=== PATIENT | male | born 1970 | race Caucasian/White ===

== ENCOUNTER → 2019-08-03 | Outpatient (CLI) | payer BC, OTHER ==
[2014-03-08 22:21] VITALS: BP 165/102
[~2019-08-03] MED LIST: BUPR150T15 PO
--- NOTE | 2019-08-03 18:58 | RAD ---
EXAM: ULTRASOUND-GUIDED THYROID FINE-NEEDLE ASPIRATION. HISTORY: Thyroid nodule. Ultrasound-guided biopsy is requested. FINDINGS: The procedure along with its risks and benefits were explained to the patient. They agreed to proceed. A timeout procedure was performed. Sonographic images of the thyroid gland were obtained. The solid target nodule in the inferior right thyroid lobe was adequately visualized for biopsy. It was approached in a transverse orientation. The overlying skin was sterilely prepped and infiltrated with 1% lidocaine for local anesthesia. Under ultrasound guidance, 4 aspirates were obtained using 25-gauge needles. These were hand delivered to pathology who determined them adequate for diagnosis. A sterile dressing was placed. There were no immediate complications. IMPRESSION: 1. Successful ultrasound-guided fine-needle aspiration of the right thyroid nodule. Electronically signed by: Clarice Diggs MD (08/03/2019 6:55 PM) [id number]
--- NOTE | 2019-08-06 13:07 | PATHOLOGY ---
Note [facility] Accession Number: [id number] TESTS RESULT FLAG UNITS REF RANGE LAB Clinician Provided Cytology Information No. of containers..01 Other (Miscellaneous) Source: RIGHT THYROID NODULE DIAGNOSIS: RIGHT THYROID NODULE INADEQUATE, INSUFFICIENT CELLS FOR STUDY. Signed out by: David Malcolm MD, Pathologist NPI- [id number] Performed by: Georges Moeller, Tailor Fitter ([facility]) Gross description: 30ML, CLEAR COLORLESS, 2FX 2AD /LCS 08/03/2019 1625 Local FLAG LEGEND: L-Low Normal,H-High Normal,LL-Alert Low,HH-Alert High <-Panic Low,>-Panic High,A-Abnormal,AA-Critical Abnormal Performed at: [facility] [address] [place] [address] Manjeet Rios MD, [address] [facility] [address] [place] [address] David Malcolm MD, Specimen Comment: A courtesy copy of this report has been sent to [phone], [phone] Specimen Comment: [id number], Specimen Comment: Report sent to ,DR NAVA / DR CANAS Specimen Comment: A duplicate report has been generated due to demographic updates. Performed at: 01 [facility] [address], [place], [place] [id number] MD Manjeet Rios MD Phone: [phone]
== END | disposition home or self-care (01) ==
LOC: US 15:48
PROVIDERS: ATTEND Surgery
DX: E04.1 Nontoxic single thyroid nodule (principal)
CPT/HCPCS: 10005; 60300; 76942; 88173

== ENCOUNTER → 2021-07-31 | Outpatient (CLI) | payer BC ==
[2014-03-08 22:21] VITALS: BP 165/102
--- NOTE | 2021-07-31 20:54 | RAD ---
EXAM: ULTRASOUND SOFT TISSUE NECK CLINICAL HISTORY: Follow-up right thyroid nodule. Status post biopsy 08/03/2019 COMPARISON: 06/14/2019 and 08/03/2019 TECHNIQUE: Ultrasound examination of the thyroid gland was performed FINDINGS: Sonographic evaluation of the thyroid gland was performed and evaluated using ACR TI-RADS criteria. The right thyroid lobe measures 6.4 x 2.5 x 2.2 cm and the left thyroid lobe 6 x 1.6 x 1.8 cm. The is thmus measures 0.4 cm in thickness. Diffusely heterogeneous thyroid parenchyma. Redemonstration of a right thyroid lobe solid hypoechoic nodule currently measured at 1.1 x 1 x 1.3 cm with the largest dimension longitudinal. On the 06/14/19 20 this nodule is measured at 1.6 x 1.5 x 2.1 cm. TI-RADS 5. No newly developed nodule. IMPRESSION: Previously biopsied TI-RADS 5 right thyroid lobe nodule measures smaller in size at 1.1 x 1 x 1.3 cm compared to 1.6 x 1.5 x 2.1 cm. No newly developed nodule. Similar overall size of the thyroid gland. As before, thyroid parenchymal echotexture is diffusely heterogeneous. Given decrease in size and pr evious biopsy, surveillance is appropriate per guidelines outlined below. ACR TI-RADS risk category: TR5 (7 points): FNA if 1 cm, follow-up if 0.5-0.9 cm every year for 5 year s. Electronically signed by: MIGNON HOLLY MD (07/31/2021 8:51 PM) [facility]
== END ==
LOC: US 10:55
PROVIDERS: ATTEND Surgery
DX: E04.1 Nontoxic single thyroid nodule (principal)
CPT/HCPCS: 76536